=== PATIENT | female | born 1960 | race African-American/Black ===

== ENCOUNTER 2018-01-14 20:12 | Inpatient (IN) | payer OTHER ==
[2018-01-14 20:22] VITALS: BMI 21.4
--- NOTE | 2018-01-14 20:22 | PDOC ---
History of Present Illness - General Chief Complaint: Chest Pain Stated Complaint: CHEST PAIN, BREATHING TROUBLE Time Seen by Provider: 01/14/18 20:21 - History of Present Illness Initial Comments: 01/14/18 20:57 The patient is a 58 year old female with a history of a gastric ulcer who presents for evaluation of cough, SOB, and chest pain. The patient reports a 2 week history of worsening SOB with associated non-productive cough. She notes onset of sharp intermittent left sided chest pain 1 day ago prompting her presentation to the ED for further evaluation. She notes that she is a current every day smoker. She otherwise denies fevers, chills, nausea, vomiting, abdominal pain, or changes with urination or bowel movements. Past History - Past Medical History Allergies/Adverse Reactions: Allergies Allergy/AdvReac Type Severity Reaction Status Date / Time No Known Allergies Allergy Verified 06/02/16 17:04 Home Medications: Ambulatory Orders NK [No Known Home Medication] 01/15/18 GI Disorders: Yes (gastric ulcer) - Suicide/Smoking/Psychosocial Hx Smoking History: Never smoked Number of Cigarettes Smoked Daily: 10 'Breaking Loose' booklet given: 06/02/16 Hx Alcohol Use: No Drug/Substance Use Hx: No Substance Use Type: None Review of Systems - Review of Systems Comments:: 01/14/18 20:59 Constitutional: No fevers, chills, fatigue, malaise HEENT: No Rhinorrhea, nasal congestion, visual changes Cardiovascular: Chest pain. No syncope, palpitations, lightheadedness Respiratory: Cough, SOB. No Hemoptysis, Gastrointestinal: No Abdominal pain, Nausea, Vomiting, Constipation, Diarrhea, Melena Genitourinary: No Dysuria, Frequency, Urgency, Hesitancy, Hematuria, Flank pain Musculoskeletal: No Myalgia, arthralgia Skin: No rashes, itching, bruising, pallor Neurologic: No Headache, Dizziness, Numbness, Weakness, or Tingling Psychiatric: No Hallucinations. No SI or HI *Physical Exam - Physical Exam Comments: 01/14/18 20:59 General Appearance: Nourished. In Mild Apparent Distress HEENT: EOMI, KAILYN. No Pharyngeal Erythema, Tonsillar Exudate, Tonsillar Erythema Neck: No Cervical Lymphadenopathy Respiratory/Chest: Lungs Clear, Normal Breath Sounds. Diffuse expiratory wheezing noted on exam with rhonchi. No Crackles, Rales, Cardiovascular: Regular Rhythm, Regular Rate. No Murmur, Gallops, Rubs Gastrointestinal/Abdominal: Normal Bowel Sounds, Soft. No Guarding, Rebound, Tenderness Musculoskeletal: No CVA Tenderness Extremity: Normal Capillary Refill Integumentary: Normal Color, Dry, Warm Neurologic: Fully Oriented, Alert, Normal Mood/Affect, Normal Response, Heart Score/ECG Review #1 ECG reviewed & interpreted by me at: 21:00 (Sinus Tachycardia) General ECG Interpretation: Sinus Rhythm, Normal Intervals, No acute ischemic changes ED Treatment Course - LABORATORY CBC & Chemistry Diagram: 01/15/18 07:50 01/15/18 07:50 Medical Decision Making - Medical Decision Making 01/14/18 21:00 The patient is a 58 year old female with a history of a gastric ulcer who presents for evaluation of cough, SOB, and chest pain. Differential includes but is not limited to: ACS, Arrhythmia, COPD, Infectious, Metabolic derangement. Given the patient's history and physical exam, it is likely the patient's symptoms are due to a COPD exacerbation. The patient was saturating at 86% on room air in triage which has improved to 96% on supplemental O2. We will obtain a cbc, cmp, bnp, troponin, ekg, and chest plain film to evaluate further. We will treat in the meantime with duonebs, solumedrol and magnesium. We will continue to monitor and reassess while here in the ED. 01/14/18 22:21 CBC, cmp, troponin are unremarkable. BNP is elevated. Chest plain film demonstrates some mild hyperinflation. Given the patient's history, it is likely her symptoms are due to a new COPD exacerbation. We believe she requires admission for further management of her symptoms. We discussed the case with the admitting team who accepted the patient for admission. *DC/Admit/Observation/Transfer Diagnosis at time of Disposition: COPD (chronic obstructive pulmonary disease) Qualifiers: COPD type: unspecified COPD Qualified Code(s): J44.9 - Chronic obstructive pulmonary disease, unspecified - Discharge Dispostion Condition at time of disposition: Stable Decision to Admit order: Yes - Referrals - Patient Instructions - Post Discharge Activity
[2018-01-14] MEDS ORDERED: ALBUTEROL SO4 2.5/IPRATROPIUM 0.5 INH SOL 3 ML VIAL.NEB. NEB ONE ×2 (20:29→20:32)
[2018-01-14] MEDS ORDERED: MAGNESIUM SULF 50% (8.12 MEQ/2 ML-1 GM VIAL) IVPB ONE (20:55)
[2018-01-14] MEDS ORDERED: methylPREDNISolone NA SUCC 125 MG/2 ML VIAL IVPUSH ONE (20:55)
[2018-01-14 21:36] LABS: HEMATOCRIT 38.3 % (32.4-45.2); HEMOGLOBIN 12.9 GM/dL (10.7-15.3); MCHC 33.8 g/dl (32.0-36.0); MEAN CELL VOLUME 94.7 fl (80-96); MEAN PLT VOLUME 9.7 fl (7.5-11.1); PLATELET COUNT 200 K/MM3 (134-434); RBC 4.04 M/mm3 (3.60-5.2); RDW 13.5 % (11.6-15.6); WHITE BLOOD COUNT 12.8 K/mm3 (4.0-10.0)
[2018-01-14 22:08] LABS: ALBUMIN 3.4 g/dl (3.4-5.0); ANION GAP 11 (8-16); BLOOD UREA NITROGEN 5 mg/dL (7-18); CALCIUM 9.6 mg/dL (8.5-10.1); CHLORIDE 93 mmol/L (98-107); CO2 26 mmol/L (21-32); GLUCOSE,RANDOM 109 mg/dL (74-106); SODIUM 130 mmol/L (136-145)
[2018-01-14 22:11] LABS: ALK PHOS 111 U/L (45-117); BILIRUBIN,TOTAL 0.7 mg/dL (0.2-1.0); CREATININE 0.6 mg/dL (0.55-1.02); SGOT/AST 32 U/L (15-37); SGPT/ALT 18 U/L (12-78); TOT PROT 8.3 g/dl (6.4-8.2)
--- NOTE | 2018-01-14 22:15 | PDOC ---
Attending Attestation - HPI HPI: 01/15/18 00:06 The patient is a 58 year old female with past medical history of Gastric ulcer presents to the emergency department via ems with cough and wheezing. The patient reports worsening dyspnea associated with nonproductive cough and musculoskeletal pain for the past 7 days. The patient states an onset of chest pain since yesterday, and wanted to get it evaluated. The patient was hypoxia and tachycardia upon arrival to the ED. Allergies: None reported Social history: None reported Surgical history: None reported PCP: None reported <Jacki Lima - Last Filed: 01/15/18 00:06> - Resident Resident Name: Grey Rai - ED Attending Attestation I have performed the following: I have examined & evaluated the patient, The case was reviewed & discussed with the resident, I agree w/resident's findings & plan, Exceptions are as noted - HPI HPI: 01/14/18 22:14 58-year-old male brought in by ambulance for coughing and wheezing the past 10 days 01/14/18 23:12 - Physicial Exam PE: 01/14/18 23:12 thin 58 yo BIBA wheezing and hypoxic head ncat neck supple.no bruits lungs scattered wheezing,coughing cvs [id number] abd soft,nontender ext no edema neuro axox3,moving all extremities - Medical Decision Making 01/15/18 01:44 58 yo female with long h/o tob use, asthma exacerbation ADMIT for further treatment <Christina Portillo - Last Filed: 01/15/18 01:45>
[2018-01-14] MEDS ORDERED: methylPREDNISolone NA SUCC 125 MG/2 ML VIAL ONE (22:40)
[2018-01-14 22:47] LABS: BASO % 1.2 % (0-2.0); EOS % 0.4 % (0-4.5); LYMPH % 29.5 % (8-40); MONO % 12.7 % (3.8-10.2); NEUT % 56.2 % (42.8-82.8)
--- NOTE | 2018-01-15 00:02 | PN ---
Teaching Attending Note Name of Resident: Josh Delaney ATTENDING PHYSICIAN STATEMENT I saw and evaluated the patient. I reviewed the resident's note and discussed the case with the resident. I agree with the resident's findings and plan as documented. SUBJECTIVE: Patient is a 58 year old woman, smoker with a history of a gastric ulcer who presents for evaluation of cough, SOB, and chest pain. The patient reports a two week history of worsening SOB with associated non-productive cough. She notes onset of sharp intermittent left sided chest pain for one day radiating to her left arm and exacerbation of SOB after preparing food for a barbeque today. Smokes 10 cigarettes daily. Denies fevers, chills, nausea, vomiting, abdominal pain, or changes urinary or bowel habits. OBJECTIVE: Small-framed woman in no acute distress. Vital Signs Period Temp Pulse Resp BP Sys/Hart Pulse Ox Last 24 Hr 116 24 148/67 86 HEENT: No Jaundice, eye redness or discharge, PERRLA, EOMI. Normocephalic, atraumatic. Poor dentition - missing a lot of teeth. External ears are normal and hearing is grossly intact. No nasal discharge. Neck: Supple, nontender. No palpable adenopathy or thyromegaly. No JVD Chest: Good effort. Bibasilar rales; prolonged expiration. No wheezing. Heart: Regular. No S3, rub or murmur Abdomen: Not distended, soft, nontender and no HSM. No rebound or guarding. Normoactive bowel sounds. Ext: Peripheral pulses intact. No leg edema. Skin: Warm and dry. No petechiae, rash or ecchymosis. Neuro: Alert. Oriented x3. CN 2-12 grossly intact. Sensation grossly intact in all four extremities and DTR are symmetric. Abnormal Lab Results 01/14/18 01/14/18 01/14/18 21:00 21:00 21:00 WBC 12.8 H Monocytes % 12.7 H Sodium 130 L Chloride 93 L BUN 5 L Random Glucose 109 H B-Natriuretic Peptide 514.79 H Total Protein 8.3 H ASSESSMENT AND PLAN: 1. COPD exacerbation - Will treat with duoneb, dulera, spiriva, Augmentin and solumedrol 40 mg q 8 hours. CXR shows increased vascular marking and EKG does not show any significant ST-T wave changes. However based on her risk factor profile and presentation we will get CTPA to rule out pulmonay embolism, do serial EKG and troponin on telemetry to rule out ACS, get ECHO and do a trial dose dose of 40 mg lasix IV and monitor her urine output - may have early CHF. Pulmonary consult for outpatient PFTs to evaluate for COPD. 2. Hyponatremia - Etiology unclear. SIADH related to pulmonary disease is a likely culprit. Will check urine sodium and osmolarity and limit free water intake to <800 ml in 24 hours. 3. DVT prophylaxis - Heparin 5000u sq tid 4. Advance directives - Full code
[2018-01-15] MEDS ORDERED: FUROSEMIDE 40 MG/4 ML INJECTABLE VIAL IVPUSH ONE (00:59)
--- NOTE | 2018-01-15 01:03 | HP ---
CHIEF COMPLAINT: SOB PCP: Dr. Cyn Colon HISTORY OF PRESENT ILLNESS: The patient is a 58 yo f w/ PMH gastric ulcer who presents to the ED c/o a 2 weeks hx of SOB. The patient's symptoms got progressively worse and became associated with a cough productive of a small amount of white sputum that is sometimes tinged green. Yesterday evening, the patient began to experience a squeezing, 10/10 chest tightness which began on the right side and moved across the chest. The pain is worse on deep breathing and coughing and was relieved when her breathing became easier. Patient is a current everyday smoker. Patient has not been diagnosed with COPD and is not on home O2. Patient denies fevers, chills, abdominal pain or changes in urinary or bowel habits. ER course was notable for: (1) CXR showing hyperinflated lungs and prominent vascular markings. (2) WBC 12.8 (3) Patient was saturating 86% on room air, now 96% on 2l NC Recent Travel: none PAST MEDICAL HISTORY: Sickle cell trait PAST SURGICAL HISTORY: Tubal ligation Social History: Smoking: current everyday smoker; smokes approx 10 cigs/day Alcohol: drinks 2-3 beers 3xper week Drugs: denies Family History: Diabetes in mother, gout, sickle cell Allergies No Known Allergies Allergy (Verified 06/02/16 17:04) HOME MEDICATIONS: REVIEW OF SYSTEMS CONSTITUTIONAL: Absent: fever, chills, diaphoresis, generalized weakness, malaise, loss of appetite, weight change HEENT: Absent: rhinorrhea, nasal congestion, throat pain, throat swelling, difficulty swallowing, mouth swelling, ear pain, eye pain, visual changes CARDIOVASCULAR: Absent: syncope, palpitations, irregular heart rate, lightheadedness, peripheral edema RESPIRATORY: Absent: orthopnea, wheezing, stridor, hemoptysis GASTROINTESTINAL: Absent: abdominal pain, abdominal distension, nausea, vomiting, diarrhea, constipation, melena, hematochezia GENITOURINARY: Absent: dysuria, frequency, urgency, hesitancy, hematuria, flank pain, genital pain MUSCULOSKELETAL: Absent: myalgia, arthralgia, joint swelling, back pain, neck pain SKIN: Absent: rash, itching, pallor HEMATOLOGIC/IMMUNOLOGIC: Absent: easy bleeding, easy bruising, lymphadenopathy, frequent infections ENDOCRINE: Absent: unexplained weight gain, unexplained weight loss, heat intolerance, cold intolerance NEUROLOGIC: Absent: headache, focal weakness or paresthesias, dizziness, unsteady gait, seizure, mental status changes, bladder or bowel incontinence PSYCHIATRIC: Absent: anxiety, depression, suicidal or homicidal ideation, hallucinations. PHYSICAL EXAMINATION Vital Signs - 24 hr 01/14/18 20:20 Pulse Rate 116 H Respiratory 24 Rate Blood Pressure 148/67 O2 Sat by Pulse 86 L Oximetry (%) GENERAL: Awake, alert, and fully oriented, in no acute distress. HEAD: Normal with no signs of trauma. EYES: Pupils equal, round and reactive to light, extraocular movements intact, sclera anicteric, conjunctiva clear. No lid lag. EARS, NOSE, THROAT: oropharynx clear without exudates. Moist mucous membranes. NECK: Normal range of motion, supple without lymphadenopathy, JVD, or masses. LUNGS: Breath sounds equal, Crackles heard in the mid lung [place] and at the bases b/l. No accessory muscle use. HEART: Regular rate and rhythm, normal S1 and S2 without murmur, rub or gallop. ABDOMEN: Soft, nontender, not distended, normoactive bowel sounds, no guarding, no rebound, no masses. No hepatomegaly or splenomegaly. LOWER EXTREMITIES: 2+ pulses, warm, well-perfused. No calf tenderness. No peripheral edema. NEUROLOGICAL: Cranial nerves II-X intact. Normal speech. PSYCHIATRIC: Cooperative. Good eye contact. Appropriate mood and affect. SKIN: Warm, dry, normal turgor, no rashes or lesions noted, normal capillary refill. Laboratory Results - last 24 hr 01/14/18 01/14/18 01/14/18 21:00 21:00 21:00 WBC 12.8 H RBC 4.04 Hgb 12.9 Hct 38.3 MCV 94.7 MCH 32.0 MCHC 33.8 RDW 13.5 Plt Count 200 MPV 9.7 Absolute Neuts (auto) 8.4 Neutrophils % 56.2 Lymphocytes % 29.5 Monocytes % 12.7 H Eosinophils % 0.4 Basophils % 1.2 Nucleated RBC % 0 Sodium 130 L Potassium 4.0 Chloride 93 L Carbon Dioxide 26 Anion Gap 11 BUN 5 L Creatinine 0.6 Creat Clearance w eGFR > 60 Random Glucose 109 H Calcium 9.6 Total Bilirubin 0.7 AST 32 ALT 18 Alkaline Phosphatase 111 Creatine Kinase 63 Troponin I < 0.02 B-Natriuretic Peptide 514.79 H Total Protein 8.3 H Albumin 3.4 ASSESSMENT/PLAN: The patient is a 58 yo f w/ PMH gastric ulcers who comes into the ED c/o a 2 week hx of SOB and cough and 1 day hx chest pain. #SOB, cough and CP 2/2 COPD exacerbation vs CHF exacerbation, r/o PE -s/p duonebs, solu-medrol, magnesium in ED -will continue w/ Solu-medrol 40mg q6h -Duonebs Q4H standing -echo -d-dimer, CTA -pulmonary consult -augmentin 875mg BID -trial of 40mg Lasix IV -Spiriva 1IH daily -Symbicort 2puffs daily #FEN -no fluids indicated -lytes wnl, replete PRN -sodium controlled diet #Prophy -lovenox 40mg SQ daily #dispo -admit to med surg Visit type - Emergency Visit Emergency Visit: Yes ED Registration Date: 01/14/18 Care time: The patient presented to the Emergency Department on the above date and was hospitalized for further evaluation of their emergent condition. - New Patient This patient is new to me today: Yes Date on this admission: 01/15/18 - Critical Care Critical Care patient: No Hospitalist Screening - Colonoscopy Questionnaire Colonoscopy Questionnaire: Colonoscopy Questionnaire - Patient: 50 - 75 years old and never had a screening colonoscopy: Unknown History of colon or rectal polyps, or CA: Unknown History of IBD, Crohn's disease or UC: Unknown History of abdominal radiation therapy as a child: Unknown - Relative: 1 with colon or rectal CA, or polyps at age 60 or younger: Unknown Colon or rectal CA diagnosed at age 45 or younger: Unknown Multiple relatives with colon or rectal CA: Unknown - Outcome: Screening Result: Negative Screen
[2018-01-15] MEDS ORDERED: FUROSEMIDE 40 MG/4 ML INJECTABLE VIAL ONE (01:09)
[2018-01-15] MEDS: ALBUTEROL SO4 2.5/IPRATROPIUM 0.5 INH SOL 3 ML VIAL.NEB. NEB SCH ×5 (02:02→21:07)
[2018-01-15] MEDS ORDERED: methylPREDNISolone NA SUCC 40 MG/1 ML VIAL ONE (03:33)
[2018-01-15] MEDS: methylPREDNISolone NA SUCC 40 MG/1 ML VIAL IVPUSH SCH ×4 (03:45→21:41)
[2018-01-15] MEDS ORDERED: AMOX TR/POT CLAV 875MG/125MG TABLETS (FP) PO SCH (08:00)
--- NOTE | 2018-01-15 08:47 | EKG ---
Test Reason : Blood Pressure : / mmHG Vent. Rate : 110 BPM Atrial Rate : 110 BPM P-R Int : 158 ms QRS Dur : 090 ms QT Int : 354 ms P-R-T Axes : 069 007 085 degrees QTc Int : 479 ms POOR DATA QUALITY, INTERPRETATION MAY BE ADVERSELY AFFECTED SINUS TACHYCARDIA BIATRIAL ENLARGEMENT RSR' OR QR PATTERN IN V1 SUGGESTS RIGHT VENTRICULAR CONDUCTION DELAY SEPTAL INFARCT , AGE UNDETERMINED ABNORMAL ECG NO PREVIOUS ECGS AVAILABLE Confirmed by GILBERT LUNA MD ([id number]) on 01/15/2018 8:47:12 AM Referred By: Confirmed By:GILBERT LUNA MD
[2018-01-15 08:48] LABS: HEMOGLOBIN 12.3 GM/dL (10.7-15.3); LYMPH % 12.5 % (8-40); MCH 32.7 pg (25.7-33.7); MCHC 34.1 g/dl (32.0-36.0); MEAN CELL VOLUME 95.7 fl (80-96); MEAN PLT VOLUME 9.7 fl (7.5-11.1); MONO % 2.8 % (3.8-10.2); NEUT % 84.7 % (42.8-82.8); PLATELET COUNT 221 K/MM3 (134-434); RBC 3.76 M/mm3 (3.60-5.2); RDW 13.3 % (11.6-15.6); WHITE BLOOD COUNT 9.7 K/mm3 (4.0-10.0)
[2018-01-15 09:12] LABS: CHLORIDE 95 mmol/L (98-107); POTASSIUM 4.2 mmol/L (3.5-5.1); SODIUM 131 mmol/L (136-145)
[2018-01-15 09:20] LABS: ALBUMIN 3.3 g/dl (3.4-5.0); ALK PHOS 108 U/L (45-117); ANION GAP 11 (8-16); BILIRUBIN,TOTAL 0.7 mg/dL (0.2-1.0); BLOOD UREA NITROGEN 7 mg/dL (7-18); CALCIUM 9.8 mg/dL (8.5-10.1); CO2 25 mmol/L (21-32); CREATININE 0.6 mg/dL (0.55-1.02); GLUCOSE,RANDOM 212 mg/dL (74-106); MAGNESIUM 1.6 mg/dL (1.8-2.4); SGOT/AST 20 U/L (15-37); SGPT/ALT 19 U/L (12-78); TOT PROT 8.4 g/dl (6.4-8.2)
[2018-01-15] MEDS ORDERED: PT OWN MED DRAWER 7, Y5N ONE ×3 (09:53→21:08)
[2018-01-15] MEDS ORDERED: TIOTROPIUM BROMIDE 18 MCG CAPSULES IH SCH (10:00)
[2018-01-15] MEDS: ENOXAPARIN NA (PORCINE) 40 MG/0.4 ML DISP.SYRIN SQ SCH (10:11)
[2018-01-15] MEDS ORDERED: ALBUTEROL SO4 0.083% IH SOL 2.5 MG/3 ML VIAL.NEB. NEB PRN (12:29)
--- NOTE | 2018-01-15 12:38 | CON.PULM ---
Consult Consult Specialty:: PULM/CCM Referred by:: OLE Reason for Consultation:: SOB - History of Present Illness Chief Complaint: SOB History of Present Illness: 58 F, prolonged smoking history (now roughly about 1/2 PPD) and history of a gastric ulcer. Admitted via the ER due to cough, SOB, and chest pain for the past 2 weeks. No travel history or sick contacts. Subjective fever but no chills. No night sweats or hemoptysis. No previous history of COPD exacerbation. No previous CT chest or PFTs. CT chest: Bilateral infiltrates / no PE noted - History Source History Provided By: Patient Limitations to Obtaining History: No Limitations - Past Medical History Pulmonary: No: Asthma, O2 Dependent, Pneumonia, Pulmonary Embolus, Pulmonary Fibrosis, Sleep Apnea - Alcohol/Substance Use Hx Alcohol Use: No - Smoking History Smoking history: Never smoked Aproximately how many cigarettes per day: 10 Home Medications - Allergies Allergies/Adverse Reactions: Allergies Allergy/AdvReac Type Severity Reaction Status Date / Time No Known Allergies Allergy Verified 06/02/16 17:04 - Home Medications Home Medications: Ambulatory Orders NK [No Known Home Medication] 01/15/18 Review of Systems - Review of Systems Constitutional: reports: Fever, Malaise, Weakness. denies: Chills, Night Sweats , Unintentional Wgt. Loss Eyes: reports: No Symptoms HENT: reports: No Symptoms Neck: reports: No Symptoms Cardiovascular: reports: Shortness of Breath. denies: Chest Pain, Edema, Palpitations Respiratory: reports: Cough, SOB, SOB on Exertion, Wheezing. denies: Hemoptysis , Orthopnea, Snoring Gastrointestinal: reports: No Symptoms Genitourinary: reports: No Symptoms Breasts: reports: No Symptoms Reported Musculoskeletal: reports: No Symptoms Integumentary: reports: No Symptoms Neurological: reports: No Symptoms Endocrine: reports: No Symptoms Hematology/Lymphatic: reports: No Symptoms Psychiatric: reports: No Symptoms Physical Exam Vital Sings: Vital Signs Temperature 97.8 F 01/15/18 07:05 Pulse Rate 87 01/15/18 07:05 Respiratory Rate 20 01/15/18 07:05 Blood Pressure 132/74 01/15/18 07:05 O2 Sat by Pulse Oximetry (%) 93 L 01/15/18 05:50 Constitutional: Yes: No Distress, Calm, Thin Eyes: Yes: Conjunctiva Clear, EOM Intact HENT: Yes: Atraumatic, Normocephalic Neck: Yes: Supple, Trachea Midline Cardiovascular: Yes: Regular Rate and Rhythm Respiratory: Yes: Cough, Diminished, Rhonchi, Wheezes. No: Accessory Muscle Use , Rales, Stridor, Tachypnea ...Inspection: Yes: WNL ...Clubbing: No Gastrointestinal: Yes: Normal Bowel Sounds, Soft Renal/: Yes: WNL Musculoskeletal: Yes: WNL Extremities: Yes: WNL Edema: No Peripheral Pulses WNL: Yes Integumentary: Yes: WNL Neurological: Yes: WNL, Alert, Oriented ...Motor Strength: WNL Psychiatric: Yes: WNL, Alert, Oriented Labs: CBC, BMP 01/15/18 07:50 01/15/18 07:50 Imaging - Results Chest X-ray: Report Reviewed, Image Reviewed Cat Scan: Report Reviewed, Image Reviewed Problem List - Problems (1) Smoker Code(s): F17.200 - NICOTINE DEPENDENCE, UNSPECIFIED, UNCOMPLICATED (2) Pneumonia Code(s): J18.9 - PNEUMONIA, UNSPECIFIED ORGANISM (3) COPD (chronic obstructive pulmonary disease) Code(s): J44.9 - CHRONIC OBSTRUCTIVE PULMONARY DISEASE, UNSPECIFIED Qualifiers: COPD type: unspecified COPD Qualified Code(s): J44.9 - Chronic obstructive pulmonary disease, unspecified Assessment/Plan Levaquin IV OD Check sputum Check urine antigen O2 as needed Smoking cessation discussed PFTs once stable as an outpatient Medrol BD TX Avoid LAMA & SHANNAN at the same time: Should be on SHANNAN after discharge Check official CT Chest reading: should have repeat imaging as an outpatient to document resolution of findings VTE prophylaxis Should assess patient's HIV status Will follow Thank you. Dr Monterroso
[2018-01-15] MEDS: BUDESONIDE/FORMETEROL FUMARATE 160/4.5 mcg INHALER IH SCH ×2 (13:32→21:42)
--- NOTE | 2018-01-15 16:39 | PN ---
Progress Note (short form) - Note Progress Note: Subjective: The patient was seen and examined at the bedside she has no complaints at this time. Current Medications Generic Name Dose Route Start Last Admin Trade Name Leticia PRN Reason Stop Dose Admin Albuterol Sulfate 1 amp 01/15/18 12:29 Ventolin 0.083% Nebulizer Soln - NEB Q4H PRN SHORT OF BREATH/WHEEZING Albuterol/Ipratropium 1 amp 01/15/18 02:00 01/15/18 14:16 Duoneb - NEB 1 amp Q4HPO ABBIE Administration Budesonide/Formoterol Fumarate 2 puff 01/15/18 10:00 01/15/18 13:32 Symbicort 160/4.5mcg - IH 1 inhaler BID ABBIE Administration Enoxaparin Sodium 40 mg 01/15/18 10:00 01/15/18 10:11 Lovenox - SQ 40 mg DAILY ABBIE Administration Vancomycin HCl 1 gm in 200 mls @ 133.333 mls/hr 01/15/18 17:10 Vancomycin 1 Gm Premix - IVPB 01/15/18 18:39 ONCE ONE Protocol Piperacillin Sod/Tazobactam 50 mls @ 100 mls/hr 01/15/18 18:00 Sod 3.375 gm/ Dextrose IVPB Q8H-IV ABBIE Protocol Methylprednisolone Sodium Succinate 40 mg 01/15/18 03:00 01/15/18 14:47 Solu-Medrol - IVPUSH 40 mg Q6H-IV ABBIE Administration Objective: Vital Signs Period Temp Pulse Resp BP Sys/Hart Pulse Ox Last 24 Hr 97.8 F-98.0 F 83-116 18-24 132-148/58-89 86-93 Physical Exam: General: NAD, A&Ox3 HEENT: Poor dentition Lungs: CTA bilaterally Heart: RRR, S1S2 Abd: Soft, non-tender, non-distended. Normoactive bowel sounds Ext: Warm, well-perfused. 2+ DP/PT bilaterally. No lower extremity edema, erythema, no calf tenderness. Neuro: CN 2-12 intact CBCD WBC 9.7 K/mm3 (4.0-10.0) 01/15/18 07:50 RBC 3.76 M/mm3 (3.60-5.2) 01/15/18 07:50 Hgb 12.3 GM/dL (10.7-15.3) 01/15/18 07:50 Hct 36.0 % (32.4-45.2) 01/15/18 07:50 MCV 95.7 fl (80-96) 01/15/18 07:50 MCHC 34.1 g/dl (32.0-36.0) 01/15/18 07:50 RDW 13.3 % (11.6-15.6) 01/15/18 07:50 Plt Count 221 K/MM3 (134-434) 01/15/18 07:50 MPV 9.7 fl (7.5-11.1) 01/15/18 07:50 CMP Sodium 131 mmol/L (136-145) L 01/15/18 07:50 Potassium 4.2 mmol/L (3.5-5.1) 01/15/18 07:50 Chloride 95 mmol/L (98-107) L 01/15/18 07:50 Carbon Dioxide 25 mmol/L (21-32) 01/15/18 07:50 Anion Gap 11 (8-16) 01/15/18 07:50 BUN 7 mg/dL (7-18) 01/15/18 07:50 Creatinine 0.6 mg/dL (0.55-1.02) 01/15/18 07:50 Creat Clearance w eGFR > 60 (>60) 01/15/18 07:50 Random Glucose 212 mg/dL (74-106) H 01/15/18 07:50 Calcium 9.8 mg/dL (8.5-10.1) 01/15/18 07:50 Total Bilirubin 0.7 mg/dL (0.2-1.0) 01/15/18 07:50 AST 20 U/L (15-37) 01/15/18 07:50 ALT 19 U/L (12-78) 01/15/18 07:50 Alkaline Phosphatase 108 U/L (45-117) 01/15/18 07:50 Total Protein 8.4 g/dl (6.4-8.2) H 01/15/18 07:50 Albumin 3.3 g/dl (3.4-5.0) L 01/15/18 07:50 CARDIAC ENZYMES Creatine Kinase 63 IU/L (26-192) 01/14/18 21:00 Troponin I < 0.02 ng/ml (0.00-0.05) 01/14/18 21:00 Microbiology 01/14/18 21:03 Blood - Peripheral Venous Blood Culture - Preliminary Pending Organism Assessment: This is a 58 year old female with PMHx of daily cigarette smoker who presented to the ED with shortness of breath Plan: 1) SOB 2/2 acute COPD exacerbation and pneumonia - Chest CTA with no evidence of pulmonary embolism. B/l pulmonary infiltrates. Nonspecific mildly enlarged mediastinal and bilateral hilar lymph nodes. Dilated main pulmonary artery - Continue solu-medrol - Duonebs - Continue albuterol neb - Continue Symbicort - Will need outpatient CT chest repeat in 4-6 weeks to document resolution of pneumonia and enlarged lymph nodes - Appreciate pulmonary consult 2) Gram positive blood culture - Discussed with Dr. Madison who recommends switching antibiotics to Vancomycin and Zosyn - F/u ID consult 3) Daily cigarette smoker - Patient refused nicotine patch 4) F/E/N: - Sodium controlled diet - Monitor electrolytes 5) Prophylaxis: - Lovenox 40mg sq daily - OOB ambulating 6) Dispo: - Requires continued inpatient care CODE STATUS: FULL CODE Visit type - Emergency Visit Emergency Visit: Yes ED Registration Date: 01/14/18 Care time: The patient presented to the Emergency Department on the above date and was hospitalized for further evaluation of their emergent condition. - New Patient This patient is new to me today: Yes Date on this admission: 01/15/18 - Critical Care Critical Care patient: No
[2018-01-15] MEDS ORDERED: VANCOMYCIN 1 GM PREMIX - 1 GM/200 ML BAG IVPB ONE (17:10)
[2018-01-15] MEDS ORDERED: PIPERACILLIN/TAZOBACTAM 3.375 GM VIAL IVPB ONE ×2 (17:36→21:08)
[2018-01-15] MEDS ORDERED: DEXTROSE 5%-WATER - 50 ML IVPB ONE ×2 (17:36→21:09)
[2018-01-15] MEDS: PIPERACILLIN/TAZOB 3.375 GM 3.375 GM in DEXTROSE 5%-WATER - 50 ML IVPB SCH (18:12)
[2018-01-15] MEDS ORDERED: MAGNESIUM OXIDE 400 MG TABLET (FP) PO ONE (19:45)
[2018-01-16] MEDS ORDERED: PIPERACILLIN/TAZOBACTAM 3.375 GM VIAL IVPB ONE ×2 (01:34→09:44)
[2018-01-16] MEDS ORDERED: DEXTROSE 5%-WATER - 50 ML IVPB ONE ×2 (01:34→09:45)
[2018-01-16] MEDS: ALBUTEROL SO4 2.5/IPRATROPIUM 0.5 INH SOL 3 ML VIAL.NEB. NEB SCH ×4 (01:36→14:51)
[2018-01-16] MEDS: PIPERACILLIN/TAZOB 3.375 GM 3.375 GM in DEXTROSE 5%-WATER - 50 ML IVPB SCH ×2 (02:31→09:58)
[2018-01-16] MEDS: methylPREDNISolone NA SUCC 40 MG/1 ML VIAL IVPUSH SCH ×2 (02:51→09:58)
[2018-01-16 07:45] LABS: HEMATOCRIT 34.6 % (32.4-45.2); HEMOGLOBIN 11.8 GM/dL (10.7-15.3); MCH 32.3 pg (25.7-33.7); MEAN CELL VOLUME 94.9 fl (80-96); MEAN PLT VOLUME 9.4 fl (7.5-11.1); PLATELET COUNT 232 K/MM3 (134-434); RBC 3.64 M/mm3 (3.60-5.2); RDW 13.6 % (11.6-15.6); WHITE BLOOD COUNT 14.6 K/mm3 (4.0-10.0)
[2018-01-16 08:11] LABS: CHLORIDE 94 mmol/L (98-107); POTASSIUM 4.5 mmol/L (3.5-5.1); SODIUM 131 mmol/L (136-145)
[2018-01-16 09:00] LABS: ALBUMIN 3.2 g/dl (3.4-5.0); ALK PHOS 95 U/L (45-117); ANION GAP 14 (8-16); BLOOD UREA NITROGEN 12 mg/dL (7-18); CALCIUM 9.4 mg/dL (8.5-10.1); CO2 23 mmol/L (21-32); CREATININE 0.8 mg/dL (0.55-1.02); GLUCOSE,RANDOM 181 mg/dL (74-106); MAGNESIUM 1.7 mg/dL (1.8-2.4); SGOT/AST 23 U/L (15-37); SGPT/ALT 21 U/L (12-78); TOT PROT 8.2 g/dl (6.4-8.2)
[2018-01-16] MEDS ORDERED: PT OWN MED DRAWER 7, Y5N ONE ×2 (09:44→10:19)
[2018-01-16] MEDS: ENOXAPARIN NA (PORCINE) 40 MG/0.4 ML DISP.SYRIN SQ SCH (09:58)
[2018-01-16] MEDS: BUDESONIDE/FORMETEROL FUMARATE 160/4.5 mcg INHALER IH SCH (09:58)
[2018-01-16] MEDS ORDERED: MAGNESIUM SULF 50% (8.12 MEQ/2 ML-1 GM VIAL) IVPB ONE (11:06)
--- NOTE | 2018-01-16 11:12 | PN ---
Physical Exam: SUBJECTIVE: Patient seen and examined. Pt states she is feeling much better today than admission. Denies fever, cough. OBJECTIVE: Vital Signs Period Temp Pulse Resp BP Sys/Hart Pulse Ox Last 24 Hr 97.4 F-98.2 F 71-95 18-20 117-146/56-69 PE Neuro: alert, awake, cn 2-12intact HEENT: poor dentition Pulm: basilar rhonchi , no cough wheezing sob CV: s1 s2 rrr Abd: s nt nd + bs Ext: warm, no le edema Laboratory Results - last 24 hr 01/16/18 01/16/18 07:00 07:00 WBC 14.6 H D RBC 3.64 Hgb 11.8 Hct 34.6 MCV 94.9 MCH 32.3 MCHC 34.0 RDW 13.6 Plt Count 232 MPV 9.4 Sodium 131 L Potassium 4.5 Chloride 94 L Carbon Dioxide 23 Anion Gap 14 BUN 12 Creatinine 0.8 Creat Clearance w eGFR > 60 Random Glucose 181 H Calcium 9.4 Magnesium 1.7 L Total Bilirubin 1.0 D AST 23 ALT 21 Alkaline Phosphatase 95 Total Protein 8.2 Albumin 3.2 L Active Medications Generic Name Dose Route Start Last Admin Trade Name Freq PRN Reason Stop Dose Admin Albuterol Sulfate 1 amp 01/15/18 12:29 Ventolin 0.083% Nebulizer Soln - NEB Q4H PRN SHORT OF BREATH/WHEEZING Albuterol/Ipratropium 1 amp 01/15/18 02:00 01/16/18 06:30 Duoneb - NEB 1 amp Q4HPO ABBIE Administration Budesonide/Formoterol Fumarate 2 puff 01/15/18 10:00 01/16/18 09:58 Symbicort 160/4.5mcg - IH 2 inhaler BID ABBIE Administration Enoxaparin Sodium 40 mg 01/15/18 10:00 01/16/18 09:58 Lovenox - SQ 40 mg DAILY ABBIE Administration Piperacillin Sod/Tazobactam 50 mls @ 100 mls/hr 01/15/18 18:00 01/16/18 09:58 Sod 3.375 gm/ Dextrose IVPB 100 mls/hr Q8H-IV ABBIE Administration Protocol Magnesium Sulfate 2 gm 01/16/18 11:06 Magnesium Sulfate IVPB 01/16/18 11:07 ONCE ONE Methylprednisolone Sodium Succinate 40 mg 01/16/18 22:00 Solu-Medrol - IVPUSH BID ABBIE Microbiology 01/15/18 17:30 Urine For Antigen Detection Legionella Antigen - Final 01/15/18 17:30 Urine For Antigen Detection Streptococcus pneumoniae Antigen (M - Final 01/14/18 21:03 Blood - Peripheral Venous Blood Culture - Preliminary NO GROWTH OBTAINED AFTER 24 HOURS, INCUBATION TO CONTINUE FOR 4 DAYS. 01/14/18 21:03 Blood - Peripheral Venous Blood Culture - Preliminary Pending Organism Imaging: - Chest CTA with no evidence of pulmonary embolism. B/l pulmonary infiltrates. Nonspecific mildly enlarged mediastinal and bilateral hilar lymph nodes. Dilated main pulmonary artery Assessment: 58 year old female with PMHx of daily cigarette smoker admitted with shortness of breath Plan: 1. SOB 2/2 acute COPD exacerbation and pneumonia - Improved - Taper solu-medrol 40mg BID - Duonebs - Continue albuterol neb - Continue Symbicort - Abx changed from levaquin to zosyn d/t +BC - Will need outpatient CT chest repeat in 4-6 weeks to document resolution of pneumonia and enlarged lymph nodes - Pulm seeing 2. Gram positive blood culture - Per ID, zosyn until bood cx speciates 3. Daily cigarette smoker - Patient refused nicotine patch 4. Hyponatremia - Corrected 132 - will monitor, pt without symptoms at this time 5. Prophylaxis: - Lovenox 40mg sq daily - OOB ambulating Visit type - Emergency Visit Emergency Visit: Yes ED Registration Date: 01/14/18 Care time: The patient presented to the Emergency Department on the above date and was hospitalized for further evaluation of their emergent condition. - New Patient This patient is new to me today: Yes Date on this admission: 01/16/18 - Critical Care Critical Care patient: No
[2018-01-16] MEDS ORDERED: MAGNESIUM SULFATE IN WATER 2 GM/50 ML IVPB IVPB ONE (12:15)
--- NOTE | 2018-01-16 14:53 | CON.ID ---
Consult Consult Specialty:: infectious diseases Referred by:: jodie Reason for Consultation:: positive blood cx - History of Present Illness Chief Complaint: cough sob History of Present Illness: 58 year old female with a history of a gastric ulcer who presents for evaluation of cough, SOB, and chest pain. The patient reports a 2 week history of worsening SOB with associated non-productive cough. She notes onset of sharp intermittent left sided chest pain 1 day ago prompting her presentation to the ED for further evaluation. She notes that she is a current every day smoker. She otherwise denies fevers, chills, nausea, vomiting, abdominal pain, or changes with urination or bowel movements. currently she feels much better patient was worked up and found to have positive blood cx patient denies any other issues and currently is walkng around without any issues she is on abx at the moment - History Source History Provided By: Patient, Medical Record Limitations to Obtaining History: Poor Historian - Past Medical History Pulmonary: No: Asthma, O2 Dependent, Pneumonia, Pulmonary Embolus, Pulmonary Fibrosis, Sleep Apnea ...: No - Alcohol/Substance Use Hx Alcohol Use: No - Smoking History Smoking history: Never smoked Have you smoked in the past 12 months: Yes Aproximately how many cigarettes per day: 10 Home Medications - Allergies Allergies/Adverse Reactions: Allergies Allergy/AdvReac Type Severity Reaction Status Date / Time No Known Allergies Allergy Verified 06/02/16 17:04 - Home Medications Home Medications: Ambulatory Orders NK [No Known Home Medication] 01/15/18 Review of Systems - Review of Systems Constitutional: reports: No Symptoms Eyes: reports: No Symptoms HENT: reports: No Symptoms Neck: reports: No Symptoms Cardiovascular: reports: No Symptoms Respiratory: reports: Cough, SOB, SOB on Exertion Gastrointestinal: reports: No Symptoms Musculoskeletal: reports: No Symptoms Integumentary: reports: No Symptoms Neurological: reports: No Symptoms Endocrine: reports: No Symptoms Hematology/Lymphatic: reports: No Symptoms Psychiatric: reports: No Symptoms Physical Exam Vital Signs: Vital Signs Temperature 97.7 F 01/16/18 09:41 Pulse Rate 95 H 01/16/18 09:41 Respiratory Rate 20 01/16/18 09:41 Blood Pressure 122/62 01/16/18 09:41 O2 Sat by Pulse Oximetry (%) 96 01/16/18 10:00 Constitutional: Yes: No Distress, Calm Eyes: Yes: Conjunctiva Clear HENT: Yes: Atraumatic Neck: Yes: Supple, Trachea Midline Cardiovascular: Yes: Regular Rate and Rhythm Respiratory: Yes: Regular, CTA Bilaterally Gastrointestinal: Yes: Normal Bowel Sounds, Soft Musculoskeletal: Yes: WNL Extremities: Yes: WNL Integumentary: Yes: WNL Neurological: Yes: Alert, Oriented Psychiatric: Yes: Alert, Oriented Labs: CBC, BMP 01/16/18 07:00 01/16/18 07:00 Imaging - Results Chest X-ray: Report Reviewed, Image Reviewed Cat Scan: Report Reviewed, Image Reviewed Assessment/Plan Problem List - Problems (1) Smoker Code(s): F17.200 - NICOTINE DEPENDENCE, UNSPECIFIED, UNCOMPLICATED (2) Pneumonia Code(s): J18.9 - PNEUMONIA, UNSPECIFIED ORGANISM (3) COPD (chronic obstructive pulmonary disease) Code(s): J44.9 - CHRONIC OBSTRUCTIVE PULMONARY DISEASE, UNSPECIFIED Qualifiers: COPD type: unspecified COPD Qualified Code(s): J44.9 - Chronic obstructive pulmonary disease, unspecified 4 gm positive bactermia plan continue current abx will repeat blood cx again rest as per primary team ct current mgmt
[2018-01-16 15:10] VITALS: BP 143/70; PULSE 78; TEMP 97.8
--- NOTE | 2018-01-16 15:51 | PN ---
Progress Note (short form) - Note Progress Note: Walking in the hallway in NAD. Reports feeling much better. Wants to go home. Denies CP, SOB< or hemoptysis. Intake & Output 01/13/18 01/14/18 01/15/18 01/16/18 23:59 23:59 23:59 23:59 Intake Total 1280 1060 Balance 1280 1060 Weight 110 lb Last Vital Signs Temp Pulse Resp BP Pulse Ox 97.8 F 78 20 143/70 96 01/16/18 14:07 01/16/18 14:07 01/16/18 14:07 01/16/18 14:07 01/16/18 10:00 Active Medications Albuterol Sulfate (Ventolin 0.083% Nebulizer Soln -) 1 amp NEB Q4H PRN PRN Reason: SHORT OF BREATH/WHEEZING Albuterol/Ipratropium (Duoneb -) 1 amp NEB Q4HPO [facility] Last Admin: 01/16/18 14:51 Dose: Not Given Budesonide/Formoterol Fumarate (Symbicort 160/4.5mcg -) 2 puff IH BID [facility] Last Admin: 01/16/18 09:58 Dose: 2 inhaler Enoxaparin Sodium (Lovenox -) 40 mg SQ DAILY [facility] Last Admin: 01/16/18 09:58 Dose: 40 mg Piperacillin Sod/Tazobactam (Sod 3.375 gm/ Dextrose) 50 mls @ 100 mls/hr IVPB Q8H-IV ABBIE; Protocol Last Admin: 01/16/18 09:58 Dose: 100 mls/hr Methylprednisolone Sodium Succinate (Solu-Medrol -) 40 mg IVPUSH BID [facility] Constitutional: Yes: No Distress, Calm, Thin Eyes: Yes: Conjunctiva Clear, EOM Intact HENT: Yes: Atraumatic, Normocephalic Neck: Yes: Supple, Trachea Midline Cardiovascular: Yes: Regular Rate and Rhythm Respiratory: Yes: Cough, Diminished, Rhonchi. No: Accessory Muscle Use, Wheeze , Rales, Stridor, Tachypnea ...Inspection: Yes: WNL ...Clubbing: No Gastrointestinal: Yes: Normal Bowel Sounds, Soft Renal/: Yes: WNL Musculoskeletal: Yes: WNL Extremities: Yes: WNL Edema: No Peripheral Pulses WNL: Yes Integumentary: Yes: WNL Neurological: Yes: WNL, Alert, Oriented ...Motor Strength: WNL Psychiatric: Yes: WNL, Alert, Oriented Labs: Problem List - Problems (1) Smoker Code(s): F17.200 - NICOTINE DEPENDENCE, UNSPECIFIED, UNCOMPLICATED (2) Pneumonia Code(s): J18.9 - PNEUMONIA, UNSPECIFIED ORGANISM (3) COPD (chronic obstructive pulmonary disease) Code(s): J44.9 - CHRONIC OBSTRUCTIVE PULMONARY DISEASE, UNSPECIFIED Qualifiers: COPD type: unspecified COPD Qualified Code(s): J44.9 - Chronic obstructive pulmonary disease, unspecified Assessment/Plan ABX per ID Follow sputum O2 as needed Smoking cessation discussed PFTs once stable as an outpatient Medrol BD TX Follow HIV serology Outpatient imaging follow up infiltrates / non-specific mild lymphadenopathy Dr Monterroso Problem List - Problems (1) Smoker Code(s): F17.200 - NICOTINE DEPENDENCE, UNSPECIFIED, UNCOMPLICATED (2) Pneumonia Code(s): J18.9 - PNEUMONIA, UNSPECIFIED ORGANISM (3) COPD (chronic obstructive pulmonary disease) Code(s): J44.9 - CHRONIC OBSTRUCTIVE PULMONARY DISEASE, UNSPECIFIED Qualifiers: COPD type: unspecified COPD Qualified Code(s): J44.9 - Chronic obstructive pulmonary disease, unspecified
[2018-01-16] MEDS ORDERED: methylPREDNISolone NA SUCC 40 MG/1 ML VIAL IVPUSH SCH (22:00)
--- NOTE | 2018-01-17 07:48 | DS ---
Physical Exam: SUBJECTIVE: Patient seen and examined. Pt left AMA OBJECTIVE: Vital Signs Period Temp Pulse Resp BP Sys/Hart Pulse Ox Last 24 Hr 97.7 F-97.8 F 78-95 20-20 122-143/62-70 96 PHYSICAL EXAM See note from 01/16 Laboratory Results - last 24 hr 01/16/18 01/16/18 07:00 07:00 WBC 14.6 H D RBC 3.64 Hgb 11.8 Hct 34.6 MCV 94.9 MCH 32.3 MCHC 34.0 RDW 13.6 Plt Count 232 MPV 9.4 Sodium 131 L Potassium 4.5 Chloride 94 L Carbon Dioxide 23 Anion Gap 14 BUN 12 Creatinine 0.8 Creat Clearance w eGFR > 60 Random Glucose 181 H Calcium 9.4 Magnesium 1.7 L Total Bilirubin 1.0 D AST 23 ALT 21 Alkaline Phosphatase 95 Total Protein 8.2 Albumin 3.2 L HOSPITAL COURSE: Date of Admission:01/14/18 Date of Discharge: 01/17/18 Minutes to complete discharge: 37 Discharge Summary Reason For Visit: CHRONIC OBSTRUCTIVE PULMONARY DISEASE Hospital Course: Pt left AMA. Risks v Benefits explained to patient including possibly worsening resp failure and infection resulting in airway collapse and . Pt understands risk and says she will return if she feels "bad" Initial Hospital Course: 58 year old woman, smoker with a history of a gastric ulcer who presents for evaluation of cough, SOB, and chest pain. The patient reports a two week history of worsening SOB with associated non-productive cough. She notes onset of sharp intermittent left sided chest pain for one day radiating to her left arm and exacerbation of SOB after preparing food for a barbeque today. Smokes 10 cigarettes daily. Denies fevers, chills, nausea, vomiting, abdominal pain, or changes urinary or bowel habits. Imaging: - Chest CTA with no evidence of pulmonary embolism. B/l pulmonary infiltrates. Nonspecific mildly enlarged mediastinal and bilateral hilar lymph nodes. Dilated main pulmonary artery Subsequent Hospital Course/Progress Note/DC summary: Assessment: 58 year old female with PMHx of daily cigarette smoker admitted with shortness of breath Plan: 1. SOB 2/2 acute COPD exacerbation and pneumonia - Improved - Taper solu-medrol 40mg BID - Duonebs - Continue albuterol neb - Continue Symbicort - Abx changed from levaquin to zosyn d/t +BC - Will need outpatient CT chest repeat in 4-6 weeks to document resolution of pneumonia and enlarged lymph nodes - Pulm seeing 2. Gram positive blood culture - Per ID, zosyn until bood cx speciates 3. Daily cigarette smoker - Patient refused nicotine patch 4. Hyponatremia - Corrected 132 - will monitor, pt without symptoms at this time Dispo: - Pt left AMA Condition: Stable - Instructions Disposition: AGAINST MEDICAL ADVICE - Home Medications Comprehensive Discharge Medication List: Ambulatory Orders NK [No Known Home Medication] 01/15/18 This patient is new to me today: Yes Date on this admission: 01/17/18 Emergency Visit: Yes ED Registration Date: 01/14/18 Care time: The patient presented to the Emergency Department on the above date and was hospitalized for further evaluation of their emergent condition. Critical Care patient: No - Discharge Referral Referred to [facility] No
== END 2018-01-16 16:28 | disposition left against medical advice (07) | DRG 139 ==
LOC: JER 20:12 → JERBED 23:58 → J5S 01-15 06:46
PROVIDERS: ADMIT Internal Medicine; ATTEND Nurse Practitioner Acute Care
DX: J18.9 Pneumonia, unspecified organism (principal); J44.1 Chronic obstructive pulmonary disease with (acute) exacerbation; E87.1 Hypo-osmolality and hyponatremia; F17.210 Nicotine dependence, cigarettes, uncomplicated; R07.9 Chest pain, unspecified; R59.1 Generalized enlarged lymph nodes; R78.81 Bacteremia; I28.8 Other diseases of pulmonary vessels
CPT/HCPCS: 36415; 71045-TC-FY; 71275-TC; 80053; 82550; 83735; 83880; 84100; 84484; 85025; 85027; 85379; 87040; 87070; 87186; 87205; 87389; 87899; 93005; 93010; 93306-TC; 93970-TC; 94640; 99285-25; J7620

== ENCOUNTER 2019-07-16 20:53 | Emergency (ER) | payer OTHER ==
--- NOTE | 2019-07-16 21:28 | PDOC ---
Rapid Medical Evaluation Chief Complaint: Pain, Acute Time Seen by Provider: 07/16/19 21:26 Medical Evaluation: Allergies Allergy/AdvReac Type Severity Reaction Status Date / Time No Known Allergies Allergy Verified 06/02/16 17:04 07/16/19 21:26 I have performed a brief in-person evaluation of this patient. The patient presents with a chief complaint of: present with complains of left side lower tooth pain with swelling to left side of face. Denies fever Pertinent physical exam findings: multiple dental decays with swelling to left side of face I have ordered the following: nothing The patient will proceed to the ED for further evaluation. Discharge Disposition - Diagnosis Pain, dental - Discharge Dispostion Condition at time of disposition: Stable - Referrals - Patient Instructions - Post Discharge Activity
[2019-07-16 21:30] VITALS: BP 179/60; PULSE 89; TEMP 98.2; BMI 21.4
--- NOTE | 2019-07-16 22:07 | PDOC ---
History of Present Illness - General Chief Complaint: Pain, Acute Stated Complaint: TOOTHACHE Time Seen by Provider: 07/16/19 21:26 - History of Present Illness Initial Comments: 07/16/19 22:04 59-year-old female presents with evaluation of dental pain x1 day without systemic symptoms Past History - Past Medical History Allergies/Adverse Reactions: Allergies Allergy/AdvReac Type Severity Reaction Status Date / Time No Known Allergies Allergy Verified 07/16/19 21:30 Home Medications: Ambulatory Orders Amoxicillin - [Amoxicillin 500mg Capsule -] 500 mg PO TID #21 capsule 07/16/19 Anemia: (SICKLE CELL) Asthma: No Cancer: No Cardiac Disorders: No CVA: No COPD: No CHF: No Dementia: No Diabetes: No GI Disorders: Yes (gastric ulcer) Disorders: No HTN: No Hypercholesterolemia: No Seizures: No Thyroid Disease: No - Immunization History Immunization Up to Date: Yes - Psycho Social/Smoking Cessation Hx Smoking History: Current every day smoker Have you smoked in the past 12 months: Yes Number of Cigarettes Smoked Daily: 7 Information on smoking cessation initiated: Yes 'Breaking Loose' booklet given: 06/02/16 Hx Alcohol Use: No Drug/Substance Use Hx: No Substance Use Type: None Review of Systems - Review of Systems HEENTM: Yes: Mouth Pain, Dental Problems *Physical Exam - Vital Signs Last Vital Signs Temp Pulse Resp BP Pulse Ox 98.2 F 89 17 179/60 H 99 07/16/19 21:26 07/16/19 21:26 07/16/19 21:26 07/16/19 21:26 07/16/19 21:26 - Physical Exam 07/16/19 22:04 Left-sided lower facial swelling no appreciable areas of fluctuance. Widespread dental decay Medical Decision Making - Medical Decision Making 07/16/19 22:04 Amoxicillin follow-up with urgent care dental Discharge - Discharge Information Problems reviewed: Yes Clinical Impression/Diagnosis: Pain, dental Condition: Stable Disposition: HOME - Admission No - Follow up/Referral Referrals: Cyn Colon [Primary Care Provider] - [facility] [Outside] - Patient Discharge Instructions Additional Instructions: Please take the antibiotics as directed and without fail follow-up with urgent care dental in 2 to 3 days for further evaluation and treatment options. Tylenol as directed for pain. - Post Discharge Activity
== END 2019-07-16 22:13 | disposition home or self-care (01) ==
LOC: JERFT 20:53
DX: K08.89 Other specified disorders of teeth and supporting structures (principal); F17.210 Nicotine dependence, cigarettes, uncomplicated; K92.9 Disease of digestive system, unspecified
CPT/HCPCS: 99281-25

== ENCOUNTER 2023-09-28 16:26 | Inpatient (IN) | payer OTHER ==
[2023-09-28 17:47] LABS: BASO % 1.1 % (0-2.0); HEMATOCRIT 40.4 % (32.4-45.2); HEMOGLOBIN 13.8 GM/dL (10.7-15.3); LYMPH % 28.2 % (8-40); MCH 31.5 pg (25.7-33.7); MCHC 34.2 g/dl (32.0-36.0); MEAN CELL VOLUME 92.1 fl (80-96); MEAN PLT VOLUME 7.7 fl (7.5-11.1); MONO % 7.2 % (3.8-10.2); NEUT % 63.5 % (42.8-82.8); PLATELET COUNT 314 10^3/uL (134-434); RBC 4.38 M/mm3 (3.60-5.2); RDW 15.3 % (11.6-15.6); WHITE BLOOD COUNT 5.1 K/mm3 (4.0-10.0)
[2023-09-28 17:52] LABS: INR 1.19 (0.83-1.09); PROTHROMBIN TIME (PATIENT) 13.8 SEC (9.7-13.0)
[2023-09-28 17:54] LABS: ACTIVATED PTT 37.4 SECONDS (25.2-36.5)
[2023-09-28 17:56] LABS: VENOUS BASE EXCESS -0.4 mmol/L (-2-2); VENOUS O2 SATURATION 34.6 % (70-80); VENOUS PCO2 39.8 mmHg (38-52); VENOUS PH 7.402 (7.310-7.410)
[2023-09-28] MEDS ORDERED: CEFTRIAXONE 1 GM/50 ML BAG ONE (18:06)
[2023-09-28] MEDS ORDERED: ACETAMINOPHEN 500 MG TABLET (FP) ONE (18:07)
[2023-09-28 18:09] LABS: CHLORIDE 72 mmol/L (98-107); POTASSIUM 5.3 mmol/L (3.5-5.1)
[2023-09-28 18:11] LABS: CALCIUM 8.5 mg/dL (8.5-10.1)
[2023-09-28 18:12] LABS: ALBUMIN 2.9 g/dl (3.4-5.0); BLOOD UREA NITROGEN 3.5 mg/dL (7-18); CO2 21 mmol/L (21-32); GLUCOSE,RANDOM 89 mg/dL (74-106); MAGNESIUM 1.6 mg/dL (1.8-2.4)
[2023-09-28] MEDS: CEFTRIAXONE 1,000 MG in DEXTROSE 5%-WATER - 50 ML IVPB ONE (18:12)
[2023-09-28] MEDS: ACETAMINOPHEN 500 MG TABLET (FP) PO ONE (18:12)
[2023-09-28 18:15] LABS: CREATININE 0.5 mg/dL (0.55-1.3); PHOSPHOROUS 2.5 mg/dL (2.5-4.9); SGOT/AST 63 U/L (15-37); SGPT/ALT 13 U/L (13-61); TOT PROT 8.9 g/dl (6.4-8.2)
[2023-09-28 18:17] LABS: BILIRUBIN,TOTAL 0.9 mg/dL (0.2-1)
[2023-09-28 18:18] LABS: ALK PHOS 119 U/L (45-117)
[2023-09-28 18:20] LABS: ANION GAP 15 mmol/L (4-13); SODIUM 108 mmol/L (136-145)
[2023-09-28] MEDS ORDERED: AZITHROMYCIN IVPB 500 MG/250 ML BAG IVPB ONE (18:27)
[2023-09-28 18:31] LABS: EPI CELLS 6 /uL (0-25.1); HYALINE CASTS 0 /uL (0-3.1); URINE APPEARANCE CLEAR; URINE BACTERIA 164 /uL (0-1359); URINE BILIRUBIN NEGATIVE (NEGATIVE); URINE COLOR YELLOW; URINE GLUCOSE (UA) NEGATIVE (NEGATIVE); URINE KETONE 1+ (NEGATIVE); URINE LEUK ESTERASE 1+ (NEGATIVE); URINE NITRITE NEGATIVE (NEGATIVE); URINE PROTEIN 3+ (NEGATIVE); URINE RBC 54 /uL (0-23.9); URINE WBC 322 /uL (0-25.8)
[2023-09-28] MEDS: AZITHROMYCIN IVPB 500 MG in DEXTROSE 5%-WATER - 250 ML IVPB ONE (18:33)
[2023-09-28 18:41] LABS: LACTIC ACID 2.9 mmol/L (0.4-2.0)
[2023-09-28] MEDS ORDERED: METOCLOPRAMIDE HCL INJECTION 10 MG/2 ML VIAL ONE (18:52)
[2023-09-28] MEDS: METOCLOPRAMIDE HCL INJECTION 10 MG/2 ML VIAL IVPUSH ONE (19:03)
[2023-09-28 19:05] LABS: CHLORIDE 72 mmol/L (98-107)
[2023-09-28 19:06] LABS: CALCIUM 8.5 mg/dL (8.5-10.1)
[2023-09-28 19:07] LABS: CO2 22 mmol/L (21-32); GLUCOSE,RANDOM 88 mg/dL (74-106)
[2023-09-28 19:10] LABS: ANION GAP 15 mmol/L (4-13); CREATININE 0.5 mg/dL (0.55-1.3); POTASSIUM 6.1 mmol/L (3.5-5.1); SODIUM 108 mmol/L (136-145)
[2023-09-28] MEDS: SODIUM CHLORIDE 1,429 ML IV ONE (19:39)
[2023-09-28] MEDS ORDERED: ALBUTEROL SO4 2.5/IPRATROPIUM 0.5 INH SOL 3 ML VIAL.NEB. NEB ONE (20:21)
[2023-09-28] MEDS ORDERED: IBUPROFEN 800 MG/8 ML IJ IVPB ONE (20:21)
[2023-09-28] MEDS ORDERED: ALBUTEROL SO4 2.5/IPRATROPIUM 0.5 INH SOL 3 ML VIAL.NEB. NEB SCH (20:23)
[2023-09-28] MEDS: IBUPROFEN 800 MG/8 ML IJ IVPB ONE (20:30)
[2023-09-28] MEDS: METOCLOPRAMIDE HCL INJECTION 10 MG/2 ML VIAL IVPB ONE (20:30)
[2023-09-28 21:25] LABS: CHLORIDE 83 mmol/L (98-107); POTASSIUM 4.4 mmol/L (3.5-5.1)
[2023-09-28 21:27] LABS: CO2 18 mmol/L (21-32); GLUCOSE,RANDOM 149 mg/dL (74-106)
[2023-09-28 21:28] LABS: BLOOD UREA NITROGEN 3.7 mg/dL (7-18)
[2023-09-28 21:31] LABS: CREATININE 0.4 mg/dL (0.55-1.3)
[2023-09-28 21:34] LABS: ANION GAP 13 mmol/L (4-13); CALCIUM 6.9 mg/dL (8.5-10.1); SODIUM 114 mmol/L (136-145)
[2023-09-28] MEDS: ALBUTEROL SO4 2.5/IPRATROPIUM 0.5 INH SOL 3 ML VIAL.NEB. NEB SCH (21:42)
[2023-09-29 02:37] LABS: BASO % 0.9 % (0-2.0); EOS % 0.1 % (0-4.5); HEMATOCRIT 30.3 % (32.4-45.2); HEMOGLOBIN 10.5 GM/dL (10.7-15.3); LYMPH % 41.5 % (8-40); MCH 31.7 pg (25.7-33.7); MCHC 34.7 g/dl (32.0-36.0); MEAN CELL VOLUME 91.3 fl (80-96); MONO % 11.6 % (3.8-10.2); NEUT % 45.9 % (42.8-82.8); PLATELET COUNT 219 10^3/uL (134-434); RBC 3.31 M/mm3 (3.60-5.2); RDW 15.3 % (11.6-15.6); WHITE BLOOD COUNT 3.4 K/mm3 (4.0-10.0)
[2023-09-29 03:09] LABS: CHLORIDE 84 mmol/L (98-107); POTASSIUM 3.9 mmol/L (3.5-5.1)
[2023-09-29 03:12] LABS: CALCIUM 7.1 mg/dL (8.5-10.1)
[2023-09-29 03:13] LABS: BLOOD UREA NITROGEN 5.7 mg/dL (7-18); CO2 23 mmol/L (21-32); GLUCOSE,RANDOM 97 mg/dL (74-106); MAGNESIUM 1.4 mg/dL (1.8-2.4)
[2023-09-29 03:15] LABS: SGOT/AST 31 U/L (15-37); SGPT/ALT 10 U/L (13-61)
[2023-09-29 03:16] LABS: BILIRUBIN,TOTAL 0.6 mg/dL (0.2-1); CREATININE 0.4 mg/dL (0.55-1.3); PHOSPHOROUS 2.7 mg/dL (2.5-4.9)
[2023-09-29 03:40] LABS: ALBUMIN 2.2 g/dl (3.4-5.0); ALK PHOS 82 U/L (45-117); ANION GAP 10 mmol/L (4-13); SODIUM 117 mmol/L (136-145); TOT PROT 6.3 g/dl (6.4-8.2)
[2023-09-29] MEDS: DEXTROSE 5%-WATER - 1,000 ML IV SCH (03:50)
[2023-09-29] MEDS: MAGNESIUM 1GM/D5W - 1 GM/100 ML IVPB IVPB ONE (03:52)
[2023-09-29] MEDS: NICOTINE 14 MG/24 HOURS TOPICAL PATCH TD SCH (04:39)
[2023-09-29 04:40] LABS: OPIATES, URI NEGATIVE (NEGATIVE); PHENCYCLIDINE,URINE NEGATIVE (NEGATIVE); URINE BARBITURATES NEGATIVE (NEGATIVE); URINE BENZODIAZEPINES NEGATIVE (NEGATIVE)
[2023-09-29 04:41] LABS: METHADONE, UR NEGATIVE (NEGATIVE); URINE AMPHETAMINES NEGATIVE (NEGATIVE)
[2023-09-29 05:41] LABS: COCAINE, UR NEGATIVE (NEGATIVE)
[2023-09-29] MEDS: MUPIROCIN 2% TOPICAL OINTMENT FOR DECOLONIZATION NS SCH (06:12)
[2023-09-29 06:53] LABS: CHLORIDE 84 mmol/L (98-107); POTASSIUM 3.8 mmol/L (3.5-5.1)
[2023-09-29 06:56] LABS: CALCIUM 7.8 mg/dL (8.5-10.1)
[2023-09-29 06:57] LABS: BLOOD UREA NITROGEN 5.6 mg/dL (7-18); CO2 25 mmol/L (21-32); GLUCOSE,RANDOM 102 mg/dL (74-106); MAGNESIUM 1.7 mg/dL (1.8-2.4)
[2023-09-29 07:00] LABS: CREATININE 0.4 mg/dL (0.55-1.3); PHOSPHOROUS 2.6 mg/dL (2.5-4.9); SGOT/AST 29 U/L (15-37); SGPT/ALT 10 U/L (13-61)
[2023-09-29 07:02] LABS: BILIRUBIN,TOTAL 0.5 mg/dL (0.2-1)
[2023-09-29 07:32] LABS: ALBUMIN 2.1 g/dl (3.4-5.0); ALK PHOS 84 U/L (45-117); ANION GAP 10 mmol/L (4-13); SODIUM 119 mmol/L (136-145); TOT PROT 6.4 g/dl (6.4-8.2)
[2023-09-29] MEDS: ALBUTEROL SO4 2.5/IPRATROPIUM 0.5 INH SOL 3 ML VIAL.NEB. NEB SCH (07:48)
[2023-09-29] MEDS ORDERED: ALBUTEROL SO4 2.5/IPRATROPIUM 0.5 INH SOL 3 ML VIAL.NEB. NEB SCH (08:00)
[2023-09-29] MEDS ORDERED: THIAMINE HCL 100 MG TABLET (FP) PO SCH (10:00)
[2023-09-29] MEDS: MAGNESIUM SULF 50% (8.12 MEQ/2 ML-1 GM VIAL) IVPB ONE (10:17)
[2023-09-29] MEDS: ENOXAPARIN NA (PORCINE) 30 MG/0.3 ML DISP.SYRIN SQ SCH (10:43)
[2023-09-29] MEDS: FOLIC ACID 1 MG TABLET (FP) PO SCH (11:10)
[2023-09-29 12:07] LABS: CHLORIDE 84 mmol/L (98-107); POTASSIUM 3.6 mmol/L (3.5-5.1)
[2023-09-29 12:08] LABS: CALCIUM 7.5 mg/dL (8.5-10.1)
[2023-09-29 12:09] LABS: BLOOD UREA NITROGEN 4.6 mg/dL (7-18); CO2 23 mmol/L (21-32); GLUCOSE,RANDOM 95 mg/dL (74-106)
[2023-09-29 12:11] LABS: CREATININE 0.4 mg/dL (0.55-1.3)
[2023-09-29 12:12] LABS: ANION GAP 10 mmol/L (4-13); SODIUM 117 mmol/L (136-145)
[2023-09-29] MEDS: MAGNESIUM OXIDE 400 MG TABLET (FP) PO ONE (12:30)
[2023-09-29 13:01] VITALS: BMI 17.2
[2023-09-29] MEDS: CEFTRIAXONE 1 GM in DEXTROSE 5%-WATER - 50 ML IVPB SCH (13:11)
[2023-09-29 13:33] LABS: CHLORIDE 83 mmol/L (98-107); POTASSIUM 3.7 mmol/L (3.5-5.1)
[2023-09-29 13:34] LABS: BLOOD UREA NITROGEN 4.3 mg/dL (7-18); CO2 24 mmol/L (21-32); GLUCOSE,RANDOM 110 mg/dL (74-106)
[2023-09-29 13:37] LABS: CREATININE 0.4 mg/dL (0.55-1.3)
[2023-09-29 13:41] LABS: ANION GAP 11 mmol/L (4-13); SODIUM 118 mmol/L (136-145)
[2023-09-29] MEDS ORDERED: THIAMINE HCL 500 MG in SODIUM CHLORIDE 250 ML IM SCH (14:00)
[2023-09-29] MEDS ORDERED: THIAMINE HCL 200 MG/2 ML VIAL IVPB SCH (14:00)
[2023-09-29] MEDS: THIAMINE HCL 200 MG/2 ML VIAL IVPB SCH (15:21)
[2023-09-29 19:30] LABS: CHLORIDE 82 mmol/L (98-107); POTASSIUM 3.6 mmol/L (3.5-5.1)
[2023-09-29 19:31] LABS: CALCIUM 7.9 mg/dL (8.5-10.1)
[2023-09-29 19:33] LABS: BLOOD UREA NITROGEN 3.6 mg/dL (7-18); CO2 27 mmol/L (21-32); GLUCOSE,RANDOM 104 mg/dL (74-106)
[2023-09-29 19:35] LABS: CREATININE 0.4 mg/dL (0.55-1.3)
[2023-09-29 19:36] LABS: ANION GAP 10 mmol/L (4-13); SODIUM 118 mmol/L (136-145)
[2023-09-29] MEDS ORDERED: POTASSIUM CHLORIDE TABS 20 MEQ TABLET.ER (FP) PO ONE ×2 (19:45→20:03)
[2023-09-29] MEDS: POTASSIUM CHLORIDE TABS 20 MEQ TABLET.ER (FP) PO ONE (22:00)
[2023-09-29] MEDS ORDERED: ALBUTEROL SO4 2.5/IPRATROPIUM 0.5 INH SOL 3 ML VIAL.NEB. NEB PRN (22:00)
[2023-09-29 22:26] LABS: CHLORIDE 82 mmol/L (98-107); POTASSIUM 3.6 mmol/L (3.5-5.1)
[2023-09-29 22:29] LABS: CALCIUM 7.8 mg/dL (8.5-10.1); CO2 25 mmol/L (21-32)
[2023-09-29 22:30] LABS: GLUCOSE,RANDOM 103 mg/dL (74-106)
[2023-09-29 22:32] LABS: CREATININE 0.4 mg/dL (0.55-1.3)
[2023-09-29 22:33] LABS: ANION GAP 12 mmol/L (4-13); SODIUM 119 mmol/L (136-145)
[2023-09-29] MEDS: CHLORHEXIDINE GLUCONATE 4% CLEANSER FOR DECOLONIZATION TP SCH (23:01)
[2023-09-30 02:26] LABS: CHLORIDE 83 mmol/L (98-107); POTASSIUM 4.2 mmol/L (3.5-5.1)
[2023-09-30 02:27] LABS: BLOOD UREA NITROGEN 3.4 mg/dL (7-18); CALCIUM 7.9 mg/dL (8.5-10.1); CO2 24 mmol/L (21-32); GLUCOSE,RANDOM 103 mg/dL (74-106)
[2023-09-30 02:31] LABS: ANION GAP 11 mmol/L (4-13); CREATININE 0.3 mg/dL (0.55-1.3); SODIUM 118 mmol/L (136-145)
[2023-09-30 07:23] LABS: BASO % 0.5 % (0-2.0); HEMATOCRIT 31.1 % (32.4-45.2); HEMOGLOBIN 10.6 GM/dL (10.7-15.3); LYMPH % 28.1 % (8-40); MCH 31.3 pg (25.7-33.7); MEAN CELL VOLUME 92.1 fl (80-96); MEAN PLT VOLUME 7.8 fl (7.5-11.1); MONO % 11.1 % (3.8-10.2); NEUT % 60.3 % (42.8-82.8); PLATELET COUNT 221 10^3/uL (134-434); RBC 3.38 M/mm3 (3.60-5.2); RDW 15.4 % (11.6-15.6); WHITE BLOOD COUNT 5.4 K/mm3 (4.0-10.0)
[2023-09-30 07:27] LABS: CHLORIDE 84 mmol/L (98-107); POTASSIUM 4.1 mmol/L (3.5-5.1)
[2023-09-30 07:29] LABS: CALCIUM 7.9 mg/dL (8.5-10.1)
[2023-09-30 07:31] LABS: BLOOD UREA NITROGEN 3.5 mg/dL (7-18); CO2 25 mmol/L (21-32); GLUCOSE,RANDOM 115 mg/dL (74-106); MAGNESIUM 1.3 mg/dL (1.8-2.4)
[2023-09-30 07:33] LABS: CHOLESTEROL 119 mg/dL (50-200); CREATININE 0.3 mg/dL (0.55-1.3); PHOSPHOROUS 1.8 mg/dL (2.5-4.9)
[2023-09-30 07:35] LABS: LDL CHOLESTEROL (ONLY SJRH) 55 mg/dL (5-100)
[2023-09-30 07:37] LABS: HDL CHOLESTEROL 45 mg/dL (40-60)
[2023-09-30 07:40] LABS: ANION GAP 11 mmol/L (4-13); SODIUM 119 mmol/L (136-145)
[2023-09-30] MEDS: MAGNESIUM 2GM/50ML STERILE WATER IVPB IVPB ONE (07:58)
[2023-09-30] MEDS: NAPH,MB-DB/K PH,MBDB POWDER PACKET PO SCH (07:58)
[2023-09-30] MEDS ORDERED: MAGNESIUM SULF 50% (8.12 MEQ/2 ML-1 GM VIAL) IVPB ONE (11:21)
[2023-09-30 12:24] LABS: CHLORIDE 83 mmol/L (98-107); POTASSIUM 4.5 mmol/L (3.5-5.1)
[2023-09-30 12:27] LABS: CO2 27 mmol/L (21-32); GLUCOSE,RANDOM 121 mg/dL (74-106)
[2023-09-30 12:31] LABS: CREATININE 0.4 mg/dL (0.55-1.3)
[2023-09-30 12:34] LABS: ANION GAP 8 mmol/L (4-13); BLOOD UREA NITROGEN 2.9 mg/dL (7-18); SODIUM 119 mmol/L (136-145)
[2023-09-30] MEDS: AZITHROMYCIN IVPB 500 MG/250 ML BAG IVPB SCH (13:07)
[2023-09-30] MEDS: SODIUM CHLORIDE IVPB ONE (13:18)
[2023-09-30] MEDS: SODIUM PHOSPHATE IVPB ONE (13:18)
[2023-09-30] MEDS: guaiFENesin/D-METHORPHAN HB 10 ML UNIT-DOSE CUPS PO PRN (13:21)
[2023-09-30] MEDS ORDERED: PROPOFOL 1,000,000 MCG/100 ML VIAL ONE (15:31)
[2023-09-30 21:56] LABS: CHLORIDE 89 mmol/L (98-107); POTASSIUM 4.1 mmol/L (3.5-5.1); SODIUM 126 mmol/L (136-145)
[2023-09-30 21:57] LABS: CALCIUM 7.7 mg/dL (8.5-10.1)
[2023-09-30 21:58] LABS: ANION GAP 8 mmol/L (4-13); CO2 29 mmol/L (21-32); GLUCOSE,RANDOM 92 mg/dL (74-106)
[2023-09-30 22:01] LABS: CREATININE 0.3 mg/dL (0.55-1.3)
[2023-09-30 22:05] LABS: BLOOD UREA NITROGEN 2.8 mg/dL (7-18)
[2023-10-01 08:57] LABS: HEMATOCRIT 27.9 % (32.4-45.2); HEMOGLOBIN 9.6 GM/dL (10.7-15.3); MCH 31.7 pg (25.7-33.7); MCHC 34.5 g/dl (32.0-36.0); MEAN CELL VOLUME 91.7 fl (80-96); MEAN PLT VOLUME 7.6 fl (7.5-11.1); PLATELET COUNT 195 10^3/uL (134-434); RBC 3.05 M/mm3 (3.60-5.2); RDW 15.1 % (11.6-15.6)
[2023-10-01 09:10] LABS: MAGNESIUM 1.4 mg/dL (1.8-2.4)
[2023-10-01 09:13] LABS: PHOSPHOROUS 2.8 mg/dL (2.5-4.9)
[2023-10-01] MEDS ORDERED: ALBUTEROL SO4 2.5/IPRATROPIUM 0.5 INH SOL 3 ML VIAL.NEB. NEB PRN (15:38)
[2023-10-01] MEDS: MAGNESIUM SULF 50% (8.12 MEQ/2 ML-1 GM VIAL) IVPB ONE (20:08)
[2023-10-01 21:01] LABS: GLUCOSE,RANDOM 94 mg/dL (74-106)
[2023-10-01 21:02] LABS: CREATININE 0.3 mg/dL (0.55-1.3)
[2023-10-01 21:03] LABS: CHLORIDE 89 mmol/L (98-107); CO2 27 mmol/L (21-32); POTASSIUM 3.7 mmol/L (3.5-5.1); SODIUM 125 mmol/L (136-145)
[2023-10-01 21:06] LABS: BLOOD UREA NITROGEN 2.3 mg/dL (7-18)
[2023-10-01] MEDS ORDERED: THIAMINE HCL 100 MG TABLET (FP) PO SCH (22:00)
[2023-10-01] MEDS ORDERED: CHLORHEXIDINE GLUCONATE 4% CLEANSER FOR DECOLONIZATION TP SCH (22:00)
[2023-10-01] MEDS ORDERED: MUPIROCIN 2% TOPICAL OINTMENT FOR DECOLONIZATION NS SCH (22:00)
[2023-10-01] MEDS: THIAMINE HCL 100 MG TABLET (FP) PO SCH (22:05)
[2023-10-01] MEDS: guaiFENesin/D-METHORPHAN HB 10 ML UNIT-DOSE CUPS PO PRN (22:05)
[2023-10-02] MEDS ORDERED: cefTRIAXone SODIUM 1 GM VIAL ONE (09:48)
[2023-10-02] MEDS ORDERED: AZITHROMYCIN IVPB 500 MG/250 ML BAG IVPB SCH (10:00)
[2023-10-02] MEDS ORDERED: CEFTRIAXONE 1 GM in DEXTROSE 5%-WATER - 50 ML IVPB SCH (10:00)
[2023-10-02] MEDS: ENOXAPARIN NA (PORCINE) 30 MG/0.3 ML DISP.SYRIN SQ SCH (11:02)
[2023-10-02] MEDS: NICOTINE 14 MG/24 HOURS TOPICAL PATCH TD SCH (11:02)
[2023-10-02] MEDS: FOLIC ACID 1 MG TABLET (FP) PO SCH (11:03)
[2023-10-02 12:49] LABS: BASO % 0.7 % (0-2.0); EOS % 0.9 % (0-4.5); HEMATOCRIT 31.7 % (32.4-45.2); HEMOGLOBIN 10.7 GM/dL (10.7-15.3); LYMPH % 24.4 % (8-40); MCH 31.5 pg (25.7-33.7); MCHC 33.8 g/dl (32.0-36.0); MEAN PLT VOLUME 7.4 fl (7.5-11.1); MONO % 16.4 % (3.8-10.2); NEUT % 57.6 % (42.8-82.8); PLATELET COUNT 239 10^3/uL (134-434); RBC 3.41 M/mm3 (3.60-5.2); RDW 15.4 % (11.6-15.6); WHITE BLOOD COUNT 7.3 K/mm3 (4.0-10.0)
[2023-10-02 13:11] LABS: CHLORIDE 84 mmol/L (98-107); POTASSIUM 3.8 mmol/L (3.5-5.1); SODIUM 123 mmol/L (136-145)
[2023-10-02 13:14] LABS: ALBUMIN 2.3 g/dl (3.4-5.0); CALCIUM 8.6 mg/dL (8.5-10.1)
[2023-10-02 13:15] LABS: ANION GAP 11 mmol/L (4-13); CO2 28 mmol/L (21-32); GLUCOSE,RANDOM 99 mg/dL (74-106); MAGNESIUM 1.4 mg/dL (1.8-2.4)
[2023-10-02 13:18] LABS: SGOT/AST 27 U/L (15-37); SGPT/ALT 9 U/L (13-61)
[2023-10-02 13:21] LABS: ALK PHOS 86 U/L (45-117); CREATININE 0.3 mg/dL (0.55-1.3)
[2023-10-02 13:23] LABS: BLOOD UREA NITROGEN 2.5 mg/dL (7-18)
[2023-10-02] MEDS ORDERED: MAGNESIUM SULF 50% (8.12 MEQ/2 ML-1 GM VIAL) IVPB ONE (14:15)
[2023-10-02 14:21] VITALS: TEMP 97.9
[2023-10-02 14:36] VITALS: BP 168/65; PULSE 103; RESP 20
[2023-10-02] MEDS: MAGNESIUM OXIDE 400 MG TABLET (FP) PO ONE (15:12)
[2023-10-02] MEDS ORDERED: SODIUM CHLORIDE 1 GM TABLET PO SCH (15:41)
[2023-10-02] MEDS ORDERED: AMOX TR/POT CLAV 500MG/125MG TABLETS (FP) PO SCH (17:30)
[2023-10-02] MEDS ORDERED: MAGNESIUM OXIDE 400 MG TABLET (FP) PO SCH (22:00)
== END 2023-10-02 18:04 | disposition home or self-care (01) | DRG 139 ==
LOC: JER 16:26 → JERBED 20:23 → JICU 09-29 00:16 → J7W 10-01 13:48
PROVIDERS: ADMIT Internal Medicine Pulmonary Disease; ATTEND Nurse Practitioner Acute Care
PROC: 05HB33Z Insertion of Infusion Device into Right Basilic Vein, Percutaneous Approach (ICD-10-PCS; principal; 2023-09-30)
PROC: B54MZZA Ultrasonography of Right Upper Extremity Veins, Guidance (ICD-10-PCS; 2023-09-30)
DX: J18.9 Pneumonia, unspecified organism (principal); E43 Unspecified severe protein-calorie malnutrition; E87.1 Hypo-osmolality and hyponatremia; J44.9 Chronic obstructive pulmonary disease, unspecified; E83.42 Hypomagnesemia; D57.1 Sickle-cell disease without crisis; F17.210 Nicotine dependence, cigarettes, uncomplicated; Z68.1 Body mass index [BMI] 19.9 or less, adult
CPT/HCPCS: 0241U-QW; 36415; 71045-TC-FY; 80048; 80053; 80061; 80307; 81003; 82533; 82550; 82570; 82803; 82962; 83036; 83605; 83735; 83930; 83935; 84100; 84300; 84436; 84443; 84479; 84484; 85025; 85027; 85610; 85730; 86850; 86900; 86901; 87040; 87070; 87086; 87205; 87899; 93005; 93010; 94640; 94761; 97116-GP; 99291; J2597

== ENCOUNTER 2024-02-28 14:35 | Emergency (ER) | payer OTHER ==
[2024-02-28 14:44] VITALS: BP 163/44; PULSE 112; RESP 16; TEMP 99.3; BMI 18.9
== END 2024-02-28 16:41 | disposition left against medical advice (07) ==
LOC: JER 14:35
DX: E87.6 Hypokalemia (principal); R79.9 Abnormal finding of blood chemistry, unspecified
CPT/HCPCS: 93005; 93010; 99283-25